=== PATIENT | female | born 1960 ===

== ENCOUNTER 2017-10-15 11:02 | Outpatient (CLI) | payer OTHER ==
[~2017-10-15 11:02] MED LIST: DESMOPRESSIN; DICY20TA PO; METOCLOPRAMIDE10 MG PO; PERCOCET 5/3251 TAB PO; PROTONIX40 MG PO; SYNTHROID125 MCG PO; ULTRACET PO
== END 2017-10-15 11:14 | disposition home or self-care (01) ==
LOC: NUCLEAR 11:02
DX: C73 Malignant neoplasm of thyroid gland (principal)
CPT/HCPCS: 78018; 78020; A9528

== ENCOUNTER 2018-09-07 11:03 | Outpatient (CLI) | payer OTHER | END 2018-09-07 11:29 | disposition home or self-care (01) | LOC: LAB 11:03 | DX: Z80.3 Family history of malignant neoplasm of breast (principal); C73 Malignant neoplasm of thyroid gland; D68.0 Von Willebrand disease; D51.0 Vitamin B12 deficiency anemia due to intrinsic factor deficiency; G47.33 Obstructive sleep apnea (adult) (pediatric); J84.10 Pulmonary fibrosis, unspecified; J84.112 Idiopathic pulmonary fibrosis; M79.7 Fibromyalgia; D50.8 Other iron deficiency anemias; D51.8 Other vitamin B12 deficiency anemias; K90.89 Other intestinal malabsorption; E78.2 Mixed hyperlipidemia; E03.8 Other specified hypothyroidism; D68.8 Other specified coagulation defects ==